=== PATIENT | male | born 1965 | race Caucasian/White ===

== ENCOUNTER 2024-04-04 15:37 | Outpatient (CLI) | payer OTHER, SELFPAY ==
--- NOTE | ~2024-04-04 | XR_ITS ---
EXAMINATION: XR knee RT min 4V DATE: 04/04/2024 15:55 INDICATION: Juvenile osteochondrosis of tibial tubercle. TECHNIQUE: 4 views of right knee were obtained. COMPARISON: None. FINDINGS: Alignment is normal. No fracture. There is mild tricompartmental osteoarthritis. No knee surya int effusion. There is ununited ossification at the tibial tubercle. IMPRESSION: 1. Mild right knee osteoarthritis. Reviewed, dictated and finalized at location A. GER MATH
== END 2024-04-04 15:38 | disposition home or self-care (01) ==
LOC: MICIMG 15:38
PROVIDERS: PCP Family Medicine; Visit Provider Nurse Practitioner Family
DX: M17.11 Unilateral primary osteoarthritis, right knee (principal); M92.529 Juvenile osteochondrosis of tibia tubercle, unspecified leg
CPT/HCPCS: 73564

== ENCOUNTER 2024-05-19 17:07 | Emergency (ER) | payer OTHER, SELFPAY ==
--- NOTE | ~2024-05-19 | XR_ITS ---
XR hand LT min 3V Ordering provider: Jojo José APRN History: . swelling and bruising, HX of ortho Surg 4th 5th metacarpal . Comparison: None. FINDINGS: BONES: No acute fracture or dislocation. Bony formation seen between the second and third metacarpal bones and between the third and fourth metacarpal bones. JOINT SPACES: Severe osteoarthritic changes of the proximal interphalangeal joint of the little finge r. Narrowing of the distal interphalangeal joints with erosive changes seen in the middle finger. SOFT TISSUES: Unremarkable. IMPRESSION: No acute osseous abnormality left hand. Polyarticular osteoarthritic changes. Reviewed, dictated and finalized at location A.
[2024-05-19 17:16] VITALS: BP 127/69; PULSE 66; RESP 18; TEMP 36.5; O2SAT 99
--- NOTE | 2024-05-19 17:20 | ED.UPPEXIN ---
HPI - Extremity Injury (Upper) General Chief Complaint: Extremity Injury, Upper Stated Complaint: left hand injury Time Seen by Provider: 05/19/24 17:15 Source: patient, RN notes reviewed and old records reviewed Mode of arrival: ambulatory Limitations: no limitations History of Present Illness HPI narrative: 59-year-old male presents to the [facility] with swelling, bruising to the dorsal aspect left hand. States that he caught it in his steering wheel on a golf cart on Wednesday, 3 days ago. History of orthopedic surgery of the same hand and wrist years ago. Onset (ago): day(s) (3) Related Data Allergies Allergy/AdvReac Type Severity Reaction Status Date / Time No Known Allergies Allergy Verified 05/19/24 17:16 Review of Systems Review of Systems: All systems reviewed & are unremarkable except as noted in HPI and below Constitutional: Constitutional: Reports no additional constitutional complaints ENT: Reports system reviewed and no additional complaints, except as documented Cardiovascular: Cardiovascular: Reports no additional cardiovascular complaints, Denies chest pain and Denies dyspnea Respiratory: Respiratory: Reports no additional respiratory complaints, Denies chest congestion, Denies cough and Denies dyspnea Musculoskeletal: Musculoskeletal: Reports as per HPI and Reports other ( hand pain, swelling, bruising) Integumentary/Breasts: Skin/Breast: Reports system reviewed and no additional complaints, except as docu PMFSH Past Medical History Medical History BMI 27.0-27.9,adult Exposure to TB Screening PSA (prostate specific antigen) Screen for colon cancer Neck pain Family History Family History Father Hypertension Family history of diabetes mellitus in first degree relative Family history of hearing loss Mother Hypertension Social History Social History Smoking status: Never smoker Alcohol intake: current Substance use: never Substance use type: does not use Comments At the time of my signature, I reviewed and agree with the nursing past medical, surgical, social, and family history. There is no relevant family history pertinent to the patient complaint. Exam Const: General: cooperative, healthy appearing, comfortable, no acute distress, well developed, alert and well nourished Nutritional Appearance: well nourished Orientation/consciousness: patient oriented x3 Limitations: no limitations HENMT: Head: normal to inspection Eyes: General: appearance normal, both eyes and all related structures Alignment and Position: alignment normal Neck: Neck: normal visual inspection, full ROM, no lymphadenopathy and no meningeal signs Chest: Chest palpation & inspection: normal inspection of the chest Resp: Effort & Inspection: normal respiratory effort and able to speak in complete sentences Cardio: Rate: regular rate Skin: General skin exam: normal color Neuro: General: patient oriented x3, gait normal, moves all extremities and no meningeal signs Cognition (Neuro): normal cognition Speech: normal speech Gait exam (Neuro): Normal gait present Extrem: General: normal to inspection, full ROM, capillary refill normal and normal gait Left upper extremity: wrist normal to inspection and normal ROM; no tenderness and no swelling and hand normal capillary refill, neuromotor exam normal Details: wrist extension normal, thumb opposition normal, thumb IP flexion normal, thumb ADduction normal and fingers 2-5 ABduction normal, tenderness of the dorsal hand over the 4th metacarpal and over the 5th metacarpal, swelling of the dorsal hand over the 3rd metacarpal, over the 4th digit and over the 5th metacarpal and ecchymosis of the dorsal hand Psych: Appearance: grossly normal and well kempt Mental Status: mental status grossly normal Speech and movement: Normal speech and movement present and Clear speech present Affect: normal affect Attitude: cooperative Course Course Level of Care: Express Care Visit Vital Signs Vital signs: Vital Signs Temperature 97.7 F 05/19/24 17:16 Pulse Rate 66 05/19/24 17:16 Respiratory Rate 18 05/19/24 17:16 Blood Pressure 127/69 05/19/24 17:16 Pulse Oximetry 99 05/19/24 17:16 Oxygen Delivery Room Air 05/19/24 17:16 Temperature 97.7 F 05/19/24 17:16 Pulse Rate 66 05/19/24 17:16 Respiratory Rate 18 05/19/24 17:16 Blood Pressure 127/69 05/19/24 17:16 Pulse Oximetry 99 05/19/24 17:16 Oxygen Delivery Room Air 05/19/24 17:16 Reviewed MDM - Extremity Injury (Upper) Differential Diagnosis Differential diagnosis: Likely fracture of hand and other ( contusion, sprain) Imaging Data Radiologist's impression: [facility] [place] [address] [facility] [address] [place] [address] XRay Report Signed with Addenda Patient: Kosta Ferreira : 1965 MR#: [id number] Age: 59 Acct:[id number] Loc: [facility] ADM Date: 05/19/24Attending Dr: Ordering Physician: Jojo José APRN Date of Service: 05/19/24 Procedure(s): XR hand LT min 3V Accession Number(s): [id number] cc: Solo Jonas MD; Jojo José APRN~ ADDENDUMPlease ignore my Previous impression. Findings: Fracture in the fifth metacarpal bone. Impression: Fracture in the fifth metacarpal bone. Polyarticular osteoarthritic changes. Addendum Dictated By: Bulmaro Eagle MD Addendum Signed By: <Electronically signed by Bulmaro Eagle MD in OV> 05/19/241750 Addendum Cosigned By: DD/ TD/TT: / XR hand LT min 3V Ordering provider: Jojo José APRN History: . swelling and bruising, HX of ortho Surg 4th 5th metacarpal . Comparison: None. FINDINGS: BONES: No acute fracture or dislocation. Bony formation seen between the second and third metacarpal bones and between the third and fourth metacarpal bones. JOINT SPACES: Severe osteoarthritic changes of the proximal interphalangeal joint of the little finger. Narrowing of the distal interphalangeal joints with erosive changes seen in the middle finger. SOFT TISSUES: Unremarkable. IMPRESSION: No acute osseous abnormality left hand. Polyarticular osteoarthritic changes. Critical Care Time Critical Care Time Critical Care Time: No Discharge Plan Discharge Clinical Impression: Closed fracture of fifth metacarpal bone of left hand Patient Disposition: Home, Self-Care Condition: Stable Instructions: Hand Fracture (ED), How to Use a Sling (ED), Splint Care (ED) Additional Instructions: rest ice elevate every 2-3 hours for 15-20 minutes while awake 1st thing Wednesday morning make a follow-up appointment either with Dr. [place] or Dr. Simon follow-up with primary care provider as needed new or worsening symptoms please go directly to the emergency room Patient Language: Slovak Prescriptions: No Action rosuvastatin [Crestor] 20 mg tablet 40 mg PO .QD Qty: 90 3RF tadalafil [Cialis] 20 mg tablet 20 mg PO DAILY PRN (Reason: sexual activity) Qty: 10 3RF Rx Instructions: administer approximately 30min before sexual activity; do not use more than 1 dose per 24hrs losartan 25 mg tablet 25 mg PO DAILY Qty: 90 0RF Follow-up/Referrals: Alex Simon MD [Physician] - 3 Days (5th metacarpal fracture) Ameya [place] MD [Physician] - 3 Days (Ortho, 5th metacarpal left) Solo Jonas MD [Primary Care Provider] - 2 Weeks Stand Alone Forms: Work/School Release IP Time of Disposition: 18:05
== END 2024-05-19 18:10 | disposition home or self-care (01) ==
PROVIDERS: Emergency Provider Nurse Practitioner; PCP Family Medicine
DX: S62.307A Unspecified fracture of fifth metacarpal bone, left hand, initial encounter for closed fracture (principal); W23.0XXA Caught, crushed, jammed, or pinched between moving objects, initial encounter
CPT/HCPCS: 29125; 73130; 99214; A4565; G0463

== ENCOUNTER 2024-05-25 16:30 | Outpatient (CLI) | payer OTHER, SELFPAY ==
--- NOTE | ~2024-05-25 | CT_ITS ---
History: Displaced fracture of the neck of the fifth metacarpal PROCEDURE: CT left hand without contrast. COMPARISON: Plain film evaluation of the left hand 05/19/2024 TECHNIQUE: Axial imaging of the left hand performed without IV contrast. Sagittal and coronal reformations obtai aniket. DLP: 624 mGy-cm FINDINGS: Redemonstration of a comminuted fracture deformity within the shaft of the fifth metacarpal, without extension into the articular surface. No significant callus formation is present. No additional fractures are appreciated. Heterogeneous mineralization is identified for which a systemic process is suspected. Radial distraction of the middle phalanx of the fifth digit is also noted, possibly related to degene rative disease. Impression: Comminuted fracture deformity of the shaft of the fifth metacarpal without extension into the articul ar surface or significant callus formation. Reviewed, dictated and finalized at location A. Impression: Comminuted fracture deformity of the shaft of the fifth metacarpal without exte nsion into the articular surface or significant callus formation.
--- OUTSIDE RECORDS SUMMARY | 2024-05-25 16:35 | XMS_ITS ---
Author Organization Unknown ENCOUNTERS Name Address [facility] Zip Phone Admit date Major class Chief complaint Dx [facility] [address] [facility] [phone] Outpatient OTHER DISTURBA NCES SKIN SENSATIO N [address] [place] [address] [phone] Outpatient [facility] [address] [place] [phone] Outpatient [facility] [address] [place] [phone] Outpatient Respiratory problems R09.89 - Other specifie d symptoms and signs involvin g the circulat ory and respirat ory systems [facility] [address] [place] [phone] Outpatient Displaced fracture of neck of fifth metacarpal bon Displace d fracture of neck of fifth metacarp al bone, left hand, initial encounte r for closed fracture *Note: Encounters from your own facility or health system may be excluded. Allergies, Adverse Reactions, Alerts No data available for this s ection Medications No data available for this s ection
== END 2024-05-25 16:31 | disposition home or self-care (01) ==
PROVIDERS: PCP Family Medicine; Visit Provider Physician Assistant Surgical
DX: S62.337A Displaced fracture of neck of fifth metacarpal bone, left hand, initial encounter for closed fracture (principal); X58.XXXA Exposure to other specified factors, initial encounter
CPT/HCPCS: 73200

== ENCOUNTER 2024-05-31 00:05 | Day surgery (SDC) | payer OTHER, SELFPAY ==
[2024-05-26 14:50] VITALS: BMI 26.4
--- NOTE | 2024-05-26 15:09 | PC.NURSE ---
Addendum entered by Jennifer Saavedra RN 05/26/24 15:16: NPO for 8 Hours prior, Patient is aware. Original Note: Report to the Outpatient Waiting Room, entrance under the green pavilion located off [facility], at time _0915 on date _05/31/24 . Planned Procedure Time: _1115 .? Time changes happen often and if your time is changed the preop area will call you the afternoon before. - You and your visitor will be asked to self-screen and do not enter if you have any COVID symptoms. Please call surgeon if you need to reschedule. - A mask is optional within the hospital at this time. Patients may have clear liquids (water, carbonated beverages, clear teas, apple juice) until 3 hours prior to surgery with a maximum of 20 ounces. - No food from midnight until time of surgery and no smoking, or chewing tobacco (or any form of nicotine). No chewing gum, candy or mints. - Infants may have breast milk until 4 hours before surgery, infant formula 6 hours prior to surgery. - Children will be allowed to drink immediately following surgery.? If applicable, please bring a bottle or sippy cup to assist with drinking. Juice, water, soda, and popsicles are readily available.? For infants on formula, please bring formula the day of surgery.? Pacifiers are allowed. Take only the following medications with a SIP of water on the morning of surgery: __N/A DO NOT STOP ANY OF YOUR OTHER PRESCRIPTION MEDICATIONS PRIOR TO SURGERY EXCEPT THE FOLLOWING Hold all vitamins and supplements for 3 days per anesthesiologist. Medications to discontinue per physician ___N/A Date to take last dose_N/A Please no make-up, nail sinhala, hairspray, perfume, deodorant, or body powder the day of surgery.? No jewelry (including any body piercings) or valuables the day of surgery, leave them at home.? Please take a shower or bath the night before, or the morning of, surgery with an antibacterial soap.? Wear comfortable, loose fitting clothing.? Children are encouraged to wear pajamas. - Jewelry must be removed prior to entering the operating room.? Rings and piercings that are not removed may be cut off. - The hospital will not accept responsibility for valuables.? - Please leave all valuables, including medications, at home the day of surgery. If you are going home after surgery, a licensed electric train driver must drive you home.? - NO public transportation without another adult if you receive anesthesia. - We recommend that an adult stay with you for 24 hours following discharge. - We also recommend that you do not drive, make important decision, drink alcoholic beverages, or take any drugs that were not prescribed by your health care provider for at least 24 hours after your discharge time. For Pediatric surgeries, we recommend two adults accompany the child home. Follow any additional instructions given to you from your surgeon. Telephone instructions given to _David and asked if any additional questions and then verbalized understanding. Patient advised to call surgeon office or pre surgery nurse liaison [phone] if any additional questions.
--- NOTE | ~2024-05-31 | XR_ITS ---
EXAMINATION: XR surgery orthopedic DATE: 05/31/2024 11:47 INDICATION: Oblique fracture of diaphysis of fifth metacarpal. TECHNIQUE: 3 intraoperative fluoroscopic views of left hand were obtained. I was not present. Fluoros copy exposure time was 1 minute 10 seconds. COMPARISON: Left hand radiographs 05/19/2024, CT 05/25/2024 FINDINGS: There is an oblique fracture of diaphysis of fifth metacarpal. The distal fracture fragment demonstrates 1 cortical width palmar displacement. Internal fixation is seen with a headless screw. IMPRESSION: 1. Oblique fracture of diaphysis of fifth metacarpal status post reduction and internal fixation. Reviewed, dictated and finalized at location A.
--- NOTE | 2024-05-31 06:54 | WPDHPUPDATE1 ---
History and Physical Update Update Date/Time: 05/31/24 06:54 Patient seen and examined in pre-operative holding area. No interval change in medical history or symptoms. Patient recalls previous discussion of benefits and alternatives to procedure. Continues to desire to proceed with left fifth metacarpal closed reduction and pinning possible open reduction and internal fixation . Reviewed procedure, post-op expectations and risks including but not limited to bleeding, infection, injury to tendon/nerve/vessel, decreased hand function, stiffness, RSD, no change or worsening of symptoms, malunion, nonunion, hardware complications. I discussed the possible use of assistants and their participation in the case. Patient stated understanding and signed the consent form wishing to proceed.
--- NOTE | 2024-05-31 06:55 | W.PM.PROC2 ---
Procedure Note - Detailed Date of Procedure 05/31/24 Pre-op Diagnosis fx left 5th metacarpal Post-op Diagnosis Same Procedure Performed orif left fifth metacarpal fracture Surgeon Alex Simon MD Topline Beading Machine Tender jim sy pa-c Anesthesia MAC Description of Procedure INFORMED CONSENT: The patient was seen and examined and marked in the pre-op area.? The patient signed the consent form. PROCEDURE IN DETAIL:The patient taken back to OR on the stretcher in supine position. Time out performed with anesthesia, surgeon and staff agreeing on patient's name site and surgery to be performed SCDs were placed on the lower extremities and inflated. A tourniquet was placed on {left} upper extremity and antibiotics given IV After anesthesia administered sedation I injected {6}cc 1%lido with epi and 0.5% marcaine plain at the operative site The?{left upper extremity}?was prepped and draped in sterile fashion the??{left upper extremity} was? exsanguinated with Esmarch bandage and tourniquet inflated to 250mmHg Mini c-arm was draped and brought into the fiield. The fracture was evaluated and reasoable reduction appeared achieveable with closed reduction manuevers but unstable. I placed a 0.045 k-wire in retrgorade fashion down the meduallary canal which appeared to help maintain reduction and decision was made to continue with placing intramedeullary screw. I made a longitudinal incision around k-wire through skin and dermis spreading with litter scissors down to metacarpal splitting the extensor tendon when doing so. I used the depth gauge to measure metacarpal length and then the k-wire was driven further into the carpus proximally. I drilled over the wire under fluoro and proceeded with placing an 3.3lob72vm arthrex intramedullary screw in standard fashion. There was reasoable maintenance of reduction and screw placement was verified on multiple views of fluoro. The k-wire was removed. There was no scissoring of the digit and the screw was buried well below the articular surface. There was no impingmenet on the extensor tendon or joint range of motion. I irrigated with normal saline and closed with 4-0 chromic. A dressing of xeroform, 4x4, van, and an ulnar gutter splint was applied for patient safety, security, and comfort and secured with an sudeep bandage after the tourniquet was let down noting the hand was warm and well perfused. The patient was then awaken from anesthesia and transferred to the recovery room in stable condition.? Complications - none EBL- 0cc Disposition - home in stable conditions Jim Sy PA-C was essential for positioning, retraction, closure and dressing placement [facility] Billing Surgery - Charge Forward: Surgery Billing ([id number] [id number] for jim)
[2024-05-31 09:28] VITALS: BP 139/85; PULSE 51; RESP 18; TEMP 36.1; O2SAT 100
[2024-05-31] MEDS: LACTATED RINGERS 1,000 ML 30 ML IV CONT (09:55)
--- NOTE | 2024-05-31 10:20 | WPDANESEPPF ---
Anes - Initial Pre Proc Eval Procedure: Operation Date: 05/31/24 11:15 Proposed Procedures p Left Fifth Metacarpal Shaft Closed Reduction Percutaneous Pinning, Possible Open Reduction Internal Fixation - Alex Simon MD Date/Time: 05/31/24 10:20 Surgeon: Alex Simon MD Pre Op Diagnosis: fx left 5th metacarpal Patient Data Age: 59 Gender: M Height: 1.8 m Weight: 85.6 kg Last Vital Signs Temp 97.0 F L 05/31/24 09:28 Pulse 51 L 05/31/24 09:28 Resp 18 05/31/24 09:28 BP 139/85 05/31/24 09:28 Pulse Ox 100 05/31/24 09:28 O2 Del Method Room Air 05/31/24 09:28 Allergies Allergy/AdvReac Type Severity Reaction Status Date / Time No Known Allergies Allergy Verified 05/31/24 10:00 Home Medications ?Medication ?Instructions ?Recorded ?Confirmed ?Type tadalafil 20 mg tablet (Cialis) 20 mg PO DAILY PRN sexual activity 03/27/24 05/26/24 Rx #10 tabs losartan 25 mg tablet 25 mg PO DAILY #90 tabs 04/17/24 05/31/24 Rx multivitamin (Daily Multi-Vitamin 1 tablet PO DAILY 05/26/24 05/31/24 History tablet) rosuvastatin 20 mg tablet (Crestor) 20 mg PO DAILY 05/26/24 05/31/24 History Patient hx anesthesia problems: none Family hx anesthesia problems: none Results Review: All pre-operative results and documents have been reviewed as part of the pre-operative evaluation. [facility] Past Medical History Medical History BMI 27.0-27.9,adult Exposure to TB Screening PSA (prostate specific antigen) Screen for colon cancer Neck pain Family History Family History Father Hypertension Family history of diabetes mellitus in first degree relative Family history of hearing loss Mother Hypertension Social History Social History Smoking status: Never smoker Alcohol intake: current Substance use: never Substance use type: does not use Anes - Eval Final PreProcedure Day of Procedure 05/31/24 10:20 Patient weight: normal Lungs: normal air movement Airway: Mallampati scale class II Neurological: alert and oriented Last oral intake: >/= 8 hours ASA classification: II Emergent: no Anesthetic plan: proceed Anesthesia type and monitoring: general LMA and standard monitoring Results Review: All pre-operative results and documents have been reviewed as part of the pre-operative evaluation. HTN, hyperlipidemia, pt very active w spinning, golf, workouts, no cp or sob. Informed Consent: The patient's anesthetic plan and its attendant risks and benefits were discussed with the patient/family/POA. Questions were solicited and answers provided to the satisfaction of the patient/family/POA.
[2024-05-31] MEDS: ceFAZolin 2 GM/D5W 50 ML 2 GM/50 ML BAG IVPB (11:06)
[2024-05-31] MEDS: LIDO 1%/EPINEPHRINE 1:100,000 50 ML VIAL 20 ML INFILTRATE (11:21)
[2024-05-31 11:48] VITALS: BP 102/63; PULSE 63; RESP 20; O2SAT 98
[2024-05-31 12:15] VITALS: BP 121/89; PULSE 55; RESP 18
[2024-05-31 12:45] VITALS: BP 145/92; PULSE 51; RESP 18
[2024-05-31 13:05] VITALS: BP 147/92; PULSE 52; RESP 18
== END 2024-05-31 13:15 | disposition home or self-care (01) ==
PROVIDERS: PCP Family Medicine; Visit Provider Plastic Surgery
PROC: (CPT 26615; principal; 2024-05-31 11:15)
DX: S62.337A Displaced fracture of neck of fifth metacarpal bone, left hand, initial encounter for closed fracture (principal); W23.0XXA Caught, crushed, jammed, or pinched between moving objects, initial encounter
CPT/HCPCS: 26615; 99199; J0690; J2003; J2004; J2250; J2704; J3010; J7120

== ENCOUNTER 2024-06-13 13:12 | Outpatient (CLI) | payer OTHER, SELFPAY ==
--- NOTE | ~2024-06-13 | XR_ITS ---
XR hand LT min 3V Ordering provider: Ani Pardo PA-C History: . S62.337A - Displaced fracture of neck of fifth metacarpal... . Comparison: May 19, 2024 FINDINGS: BONES: Postoperative changes in the fifth metacarpal bone. Surrounding cast is noted. Bony protrusion seen in the second and third carpal bones. JOINT SPACES: Narrowing of the proximal and distal interphalangeal joints.. SOFT TISSUES: Unremarkable. IMPRESSION: Postoperative changes in the fifth metacarpal bone. Polyarticular osteoarthritic changes. Reviewed, dictated and finalized at location A.
--- OUTSIDE RECORDS SUMMARY | 2024-06-13 14:34 | XMS_ITS | Clinical Summary ---
Author Organization [facility] Address [address] [place] [address] Care Team Providers Care Group Billing Coordinator Name Role Phone Unavailable Primary Care Provider Unavailabl e Source Comments This information has been disclosed to you from records protected by Federal confidentiality rules (42 CFR part 2). The Federal rules prohibit you from making any further disclosure of this information unless further disclosure is expressly permitted by the written consent of the person to whom it pertains or as otherwise permitted by 42 CFR part 2. A general authorization for the release of medical or other information is NOT sufficient for this purpose. The Federal rules restrict any use of the information to criminally investigate or prosecute any alcohol or drug abuse patient.[facility] Encounters Date Type Department Care Team Description 05/01/2024 8:00 AM PST Office Visit [facility] [address] [place] [address] [facility]ha [place] MD ALONDRA (obstructive sleep apnea) (Primary Dx); Insomnia, unspecified type; Environmental and seasonal allergies; Bruxism; Essential hypertension; Overweight 04/13/2024 8:30 AM PST Office Visit [facility] [address], [address] [place] [address] Sudha [place] MD Sleep-disordered breathing (Primary Dx); Bruxism; Insomnia, unspecified type; Environmental and seasonal allergies; Essential hypertension; Overweight from Last 3 Months Social History Tobacco Use Types Packs/Day Years Used Date Smoking Tobacco: Never Assessed Sex and Gender Information Value Date Recorded Sex Assigned at Not on file Legal Sex Male 11:50 AM PST Gender Identity Not on file Sexual Orientation Not on file Plan of Treatment Health Maintenance Due Date Last Done Comments LIPID SCREENING 1975 HEPATITIS C SCREENING 1983 UNIVERSAL HIV SCREENING 1983 DTaP,Tdap,or Td Vaccine (1 - Tdap) 01/30/1984 HEPATITIS B VACCINE (1 of 3 - 19+ 3-dose series) 01/30/1984 MMR VACCINE ADULT 01/30/1984 COLORECTAL CANCER SCREENING DISCUSSION 2010 PNEUMOCOCCAL VACCINE 50+ YEA RS (1 of 1 - PCV) 2015 ZOSTER VACCINE (Shingrix w/w o Zostavax) (1 of 2) 2015 INFLUENZA VACCINE 10/07/2023 COVID-19 Vaccine ( - 2023-2 5 season) 2023 HEPATITIS A VACCINE Aged Out No longe r eligible based on patient's age to complete this topic HPV VACCINE Aged Out No longer eligi ble based on patient's age to complete this topic MENINGOCOCCAL ACWY VACCINE Aged Out N o longer eligible based on patient's age to complete this topic Insurance [employer] [address]
== END 2024-06-13 13:13 | disposition home or self-care (01) ==
PROVIDERS: PCP Family Medicine; Visit Provider Physician Assistant Surgical
DX: S62.337A Displaced fracture of neck of fifth metacarpal bone, left hand, initial encounter for closed fracture (principal); X58.XXXA Exposure to other specified factors, initial encounter
CPT/HCPCS: 73130

== ENCOUNTER 2024-06-27 13:31 | Outpatient (CLI) | payer OTHER, SELFPAY ==
--- NOTE | ~2024-06-27 | XR_ITS ---
XR hand LT min 3V Ordering provider: Ani Pardo PA-C History: . S62.337A - Displaced fracture of neck of fifth metacarpal... . Comparison: June 13, 2024 FINDINGS: BONES: Postoperative changes in the fifth metacarpal bone. Status post removal of the cast. Other appearances are unchanged. IMPRESSION: No change from previous examination. Status post removal of the cast Reviewed, dictated and finalized at location A.
--- OUTSIDE RECORDS SUMMARY | 2024-06-27 15:25 | XMS_ITS | Clinical Summary ---
Author Organization [facility] Address [address] [place] [address] Care Team Providers Care Business Services Associate Name Role Phone Unavailable Primary Care Provider [...] or prosecute any alcohol or drug abuse patient.[facility] Encounters Date Type Department Care Team Description 05/01/2024 8:00 AM PST Office Visit [facility] [address] [place] [address] Sudha B[facility] MD ALONDRA (obstructive sleep apnea) (Primary Dx); Insomnia, unspecified type; Environmental and seasonal allergies; Bruxism; Essential hypertension; Overweight 04/13/2024 8:30 AM PST Office Visit [facility] [address], [address] [place] [address] Sudha Barrow MD Sleep-disordered breathing (Primary Dx); [...]
== END 2024-06-27 13:32 | disposition home or self-care (01) ==
PROVIDERS: PCP Family Medicine; Visit Provider Physician Assistant Surgical
DX: S62.337A Displaced fracture of neck of fifth metacarpal bone, left hand, initial encounter for closed fracture (principal); X58.XXXA Exposure to other specified factors, initial encounter
CPT/HCPCS: 73130

== ENCOUNTER 2024-11-14 09:40 | Outpatient (CLI) | payer OTHER, SELFPAY ==
--- NOTE | ~2024-11-14 | XR_ITS ---
EXAMINATION: XR hand LT min 3V, 11/14/2024 9:48 CDT HISTORY: M25.649 - Stiffness of unspecified hand, not elsewhere cl... COMPARISON: No comparisons available. Findings: Postsurgical changes with fixation of the fifth metacarpal. No acute fracture or dislocation is identified. There are severe degenerative changes of the distal and proximal interphalangeal joints. Soft tissues unremarkable. Impression: No acute fracture or malalignment. Reviewed, dictated and finalized at location A. Impression: No acute fracture or malalignment.
== END 2024-11-14 09:41 | disposition home or self-care (01) ==
PROVIDERS: PCP Family Medicine; Visit Provider Plastic Surgery
DX: M25.462 Effusion, left knee (principal)
CPT/HCPCS: 73130

== ENCOUNTER 2024-11-23 12:26 | Outpatient (CLI) | payer OTHER, SELFPAY ==
--- NOTE | 2024-11-23 12:34 | ECG_ITS ---
Test Date: 2024-11-23 12:48:51 Measurements Intervals [place] Rate: 61 P: 64 WV: 149 QRS: 63 QRSD: 99 T: 46 QT: 417 QTc: 423 Interpretive Statements SINUS RHYTHM NORMAL ECG No previous ECG available for comparison Electronically Signed On 11-23-2024 17:55:29 CDT by Shaq Mcgregor M.D.
== END 2024-11-23 12:27 | disposition home or self-care (01) ==
PROVIDERS: PCP Family Medicine; Visit Provider Anesthesiology
DX: E78.2 Mixed hyperlipidemia (principal); I10 Essential (primary) hypertension; Z01.818 Encounter for other preprocedural examination
CPT/HCPCS: 93005

== ENCOUNTER 2024-11-30 08:28 | Day surgery (SDC) | payer OTHER, SELFPAY ==
[2024-11-23 08:07] VITALS: BMI 26.6
--- NOTE | ~2024-11-30 | XR_ITS ---
XR surgery orthopedic Indication: Left fifth metacarpal fracture. Closed Manipulation. TECHNIQUE: Fluoroscopy used during Left fifth metacarpal fracture. Closed Manipulation. performed by [Alex Simon MD] on 11/30/2024. 1 seconds of fluoroscopy time with one fluoroscopic images captured. FINDINGS: Correlate with procedure note. IMPRESSION: Fluoroscopy used during Left fifth metacarpal fracture. Closed Manipulation.. Reviewed, dictated and finalized at location O. IMPRESSION: Fluoroscopy used during Left fifth metacarpal fracture. Closed Vin pulation..
--- NOTE | 2024-11-30 07:02 | WPDHPUPDATE1 ---
History and Physical Update Update Date/Time: 11/30/24 07:02 Patient seen and examined in pre-operative holding area. No interval change in medical history or symptoms. Patient recalls previous discussion of benefits and alternatives to procedure. Continues to desire to proceed with left fifth metacarpal closed manipulation possible capsulotomy metacarpophalangeal joint possible tenolysis. Reviewed procedure, post-op expectations and risks including but not limited to bleeding, infection, injury to tendon/nerve/vessel, decreased hand function, stiffness, RSD, no change or worsening of symptoms, fracture. I discussed the possible use of assistants and their participation in the case. Patient stated understanding and signed the consent form wishing to proceed.
--- NOTE | 2024-11-30 07:03 | P.OP_ITS ---
Procedure Note - Detailed Date of Procedure 11/30/24 Pre-op Diagnosis Left Fifth Finger Joint Stiffness Post-op Diagnosis Same Procedure Performed left 5th mpj capsulotomy, extensor tenolysis and closed manipulation small finger pipjoint Surgeon Alex Simon MD Label Operator jim sy pa-c Anesthesia MAC Description of Procedure INFORMED CONSENT: The patient was seen and examined and marked in the pre-op area.? The patient signed the consent form. PROCEDURE IN DETAIL:The patient taken back to OR on the stretcher in supine position. Time out performed with anesthesia, surgeon and staff agreeing on patient's name site and surgery to be performed SCDs were placed on the lower extremities and inflated. A tourniquet was placed on {left} upper extremity and antibiotics given IV After anesthesia administered sedation I injected {4}cc 1%lido and 0.5% marcaine plain for digitial block in the palm The?{left upper extremity}?was prepped and draped in sterile fashion the??{left upper extremity} was? exsanguinated with Esmarch bandage and tourniquet inflated to 250mmHg Closed manipulation was attempted for the MP joint though no significant increase in mobility was achieved. Closed manipulation of the left small finger PIP joint was performed which did improve the small flexion contracture and was able to achieve near full PIP joint extension with less than 5? of flexion noted. Because closed manipulation was ineffective for the MP joint we proceeded with making a longitudinal incision over the 5th MP joint through skin and dermis with 15 blade scalpel. Littler scissors were used to elevate skin flaps exposing the extensor tendon which had a significant amount of scar tissue adhesion to the skin. I made a window underneath the extensor tendon proximally and then used tenolysis knives to free any adhesions from the extensor tendon proximally going distally across the MP joint onto the dorsum of the proximal phalanx underneath the extensor lopez until the extensor tendon appeared to be free. This yielded improvement in excursion of extensor tendon but the MP joint remained notably stiff. I made a longitudinal incision to split the extensor from his previous procedure and improve access to the MP joint. Fifteen blade scalpel was then used to make a dorsal capsulotomy on the MP joint and then I proceeded with releasing the radial and ulnar collateral ligaments of the MP joint from the distal insertion on the MP joint. Now with further pressure applied I was able to achieve 90? of MP joint flexion. I irrigated with normal saline. The split incision in the extensor tendon was repaired with 5 0 Prolene suture. 4-0 chromic was used for skin closure. Mini C-arm was used to verify no fracture occurred during the procedure and joints remained reduced. 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 A dressing of xeroform, 4x4, van, and a ulnar gutter dorsal splint splint was applied with mpjoint fully flexed and pipjoint free after the tourniquet was let down noting the hand was warm and well perfused. The patient was then awaken from anesthesia and transferred to the recovery room in stable condition.? Complications - none EBL- 0cc Disposition - home in stable condition Jim Sy PA-C was essential for positioning, retraction, closure and dressing placement [facility] Billing Surgery - Charge Forward: Surgery Billing ([id number] same for jim moreau )
[2024-11-30 08:50] VITALS: BP 152/98; PULSE 53; RESP 16; TEMP 36.6; O2SAT 98
[2024-11-30] MEDS: ACETAMINOPHEN 500 MG TABLET 1000 MG PO (08:52)
[2024-11-30] MEDS: LACTATED RINGERS 1,000 ML 30 ML IV CONT (08:54)
--- NOTE | 2024-11-30 09:24 | WPDANESEPPF ---
Anes - Initial Pre Proc Eval Procedure: Operation Date: 11/30/24 10:00 Proposed Procedures p Left Fifth Metacarpal Fracture Closed Manipulation, Possible Tenolysis and Capsulotomy - Alex Simon MD Date/Time: 11/30/24 09:24 Surgeon: Alex Simon MD Pre Op Diagnosis: Left Fifth Finger Joint Stiffness Patient Data Age: 59 Gender: M Height: 1.82 m Weight: 88.85 kg Last Vital Signs Temp 97.8 F 11/30/24 08:50 Pulse 53 L 11/30/24 08:50 Resp 16 11/30/24 08:50 BP 152/98 H 11/30/24 08:50 Pulse Ox 98 11/30/24 08:50 O2 Del Method Room Air 11/30/24 08:50 Allergies Allergy/AdvReac Type Severity Reaction Status Date / Time No Known Allergies Allergy Verified 11/30/24 08:49 Home Medications ?Medication ?Instructions ?Recorded ?Confirmed ?Type tadalafil 20 mg tablet (Cialis) 20 mg PO DAILY PRN sexual activity 03/27/24 11/30/24 Rx #10 tabs multivitamin (Daily Multi-Vitamin 1 tablet PO DAILY 05/26/24 11/30/24 History tablet) rosuvastatin 20 mg tablet (Crestor) 20 mg PO DAILY 05/26/24 11/30/24 History losartan 25 mg tablet 25 mg PO DAILY #90 tabs 11/07/24 11/30/24 Rx tramadol 50 mg tablet 50 mg PO Q6H PRN pain #12 tabs 11/30/24 Rx Patient hx anesthesia problems: none Family hx anesthesia problems: none Results Review: All pre-operative results and documents have been reviewed as part of the pre-operative evaluation. [facility] Past Medical History Medical History BMI 27.0-27.9,adult Exposure to TB Screening PSA (prostate specific antigen) Screen for colon cancer Neck pain Family History Family History Father Hypertension Family history of diabetes mellitus in first degree relative Family history of hearing loss Mother Hypertension Social History Social History (Updated 10/03/24 @ 09:06 by Michelle Corbett) Social History: Caffeine-coffee Smoking status: Never smoker Second hand tobacco smoke exposure: Yes Alcohol intake: current Drinks per week: 4 Substance use: never Substance use type: does not use Living arrangements: with family Spiritual care concerns: No Anes - Eval Final PreProcedure Day of Procedure 11/30/24 09:24 Heart: regular rate and rhythm Lungs: clear to auscultation Airway: Mallampati scale class IV and special considerations retrognathia Neurological: alert and oriented Last oral intake: >/= 8 hours ASA classification: II Anesthetic plan: proceed Anesthesia type and monitoring: monitored anesthesia care Results Review: All pre-operative results and documents have been reviewed as part of the pre-operative evaluation. Informed Consent: The patient's anesthetic plan and its attendant risks and benefits were discussed with the patient/family/POA. Questions were solicited and answers provided to the satisfaction of the patient/family/POA.
[2024-11-30] MEDS: ceFAZolin SODIUM 2 GM/20 ML SW SYRINGE IV PUSH (10:01)
[2024-11-30] MEDS: LIDOCAINE 1% LOCAL INJ 20 ML VIAL 10 ML INFILTRATE (10:19)
[2024-11-30] MEDS: BUPivacaine HCL 0.5% 10 ML AMP INFILTRATE (10:19)
[2024-11-30 10:43] VITALS: BP 132/83; PULSE 52; RESP 16; O2SAT 97
[2024-11-30 10:58] VITALS: BP 121/109; PULSE 49; RESP 16; O2SAT 97
[2024-11-30 11:17] VITALS: BP 155/106; PULSE 47; RESP 16; O2SAT 98
== END 2024-11-30 11:23 | disposition home or self-care (01) ==
PROVIDERS: PCP Family Medicine; Visit Provider Plastic Surgery
PROC: (CPT 26520; principal; 2024-11-30 10:00)
DX: M25.642 Stiffness of left hand, not elsewhere classified (principal)
CPT/HCPCS: 26520; 26445; 99199